=== PATIENT | female | born 1940 | race Caucasian/White ===

== ENCOUNTER → 2016-12-13 | Outpatient (CLI) | payer OTHER ==
[~2016-12-13] MED LIST: AMILORIDE HCL-1 EACH PO; ASPIRIN81 M2 PO; CENTRUM SILVER1 EAC4 PO; HYDROCODONE-AP1 EAC6 PO; LEVOTHYROXINE 0.1 MG PO; LOPRESSOR50 PO; NORVASC10 MG PO; PRINIVIL20 MG PO; ZOCOR40 MG PO
== END ==
LOC: RAD 09:21
DX: J98.11 Atelectasis (principal); R07.9 Chest pain, unspecified

== ENCOUNTER → 2016-12-19 | Outpatient (CLI) | payer OTHER | LOC: NUC 03:36 | DX: R07.89 Other chest pain (principal) ==

== ENCOUNTER → 2016-12-25 | Outpatient (CLI) | payer OTHER | LOC: MRI 02:12 | DX: M51.25 Other intervertebral disc displacement, thoracolumbar region (principal) ==

== ENCOUNTER → 2017-03-15 | Outpatient (CLI) | payer OTHER | LOC: CAT 07:54 | DX: K42.9 Umbilical hernia without obstruction or gangrene (principal); K44.9 Diaphragmatic hernia without obstruction or gangrene; I51.7 Cardiomegaly; K59.00 Constipation, unspecified ==

== ENCOUNTER → 2017-05-28 | Outpatient (CLI) | payer OTHER | LOC: RAD 04:07 | DX: Z12.31 Encounter for screening mammogram for malignant neoplasm of breast (principal) ==

== ENCOUNTER 2018-02-20 06:55 | Day surgery (SDC) | payer OTHER ==
[~2018-02-20] VITALS: Ht 167.6 cm; Wt 77.1 kg
--- NOTE | ~2018-02-20 | O ---
[facility] [place] [address] OPERATIVE REPORT Name: RISHI MIRZA Room #: DEP [facility]#: [id number] Admission: 02/20/18 Attend Phys: Ed Perez MD Discharge: 02/20/18 Date of : 38 Report #: [id number] THIS REPORT FOR: //name// CC: Feliberto Perez DATE OF SERVICE: 02/20/2018 SURGEON: Ed Perez MD [employer]AV[employer] MECHANIC: None. PREOPERATIVE DIAGNOSIS: Bilateral lower lid ectropion. POSTOPERATIVE DIAGNOSIS: Bilateral lower lid ectropion. OPERATION PERFORMED: Bilateral lower lid ectropion repair. ANESTHESIA: Local with IV sedation. COMPLICATIONS: None. INDICATIONS FOR PROCEDURE: This patient has bilateral acquired lower lid ectropion with chronic tearing and discharge. The current procedures are undertaken in order to improve the patient's visual function, lacrimal outflow, and level of comfort. Informed consent was obtained to include but not limit to the risk of loss of vision, bleeding, infection, scarring, failure to improve the problem and need for further surgery. DESCRIPTION OF OPERATION: The patient was taken to the operating room where 2% Xylocaine with epinephrine mixed with equal parts of 0.75% Marcaine with Wydase was administered transcutaneously and transconjunctivally to each lower lid and lateral canthal area. The patient was then prepped and draped in the usual sterile fashion. A Charles clamp was then used to clamp the left lateral canthus following which a sharp canthotomy and cantholysis were performed. The tarsal strip was prepared laterally, removing the lash bearing portion of the redundant lid margin and the redundant tarsal plate. Hemostasis was achieved with a monopolar cautery, as it was throughout the case. The tarsal strip was then secured to the internal portion of the lateral orbital tubercle with two interrupted 5-0 Prolene sutures. The lateral canthal angle was sharply reformed as the subcutaneous structures and the skin were closed with multiple interrupted 6-0 plain gut sutures. [facility] [address] [place] [address] OPERATIVE REPORT Name: RISHI MIRZA Room #: DEP [facility]#: [id number] Admission: 02/20/18 Attend Phys: Ed Perez MD Discharge: 02/20/18 Date of : 38 Report #: [id number] Attention was then turned to the right side where the same procedure was performed. The wounds were cleaned and dressed with ophthalmic antibiotic ointment. The patient was then transported to the recovery area, having tolerated the procedure well with no anesthetic or operative complications being noted. <ELECTRONICALLY SIGNED> By: Ed Perez MD 02/24/18 0618 [id number] Ed Perez MD /nt
[~2018-02-20 06:55] MED LIST changes: +COREG25 MG PO; +COZAAR 50 MG TA50 M2 PO; +CRESTOR40 MG PO; +HYDRALAZINE HC100 MG PO; +KLOR-CON M2020 MEQ PO; +LEVOTHYROXINE125 MCG PO; +PLAVIX 75 MG TA75 M1 PO; +VITAMIN D1000 UNI2 PO
[2018-02-20 09:54] VITALS: BP 145/56
== END 2018-02-20 12:00 | disposition home or self-care (01) ==
LOC: OR 06:55 → TBA 06:55 → OR 07:29
DX: H02.105 Unspecified ectropion of left lower eyelid (principal); H02.102 Unspecified ectropion of right lower eyelid; I10 Essential (primary) hypertension; E78.5 Hyperlipidemia, unspecified; Z90.710 Acquired absence of both cervix and uterus; Z98.890 Other specified postprocedural states; Z98.41 Cataract extraction status, right eye; Z98.42 Cataract extraction status, left eye; Z85.3 Personal history of malignant neoplasm of breast; Z79.899 Other long term (current) drug therapy; Z88.2 Allergy status to sulfonamides; Z79.82 Long term (current) use of aspirin
CPT/HCPCS: 50010; 50101; 50386; 50398; 51636; 56527; 56531; 62110; 62850; 70005

== ENCOUNTER → 2018-06-03 | Outpatient (CLI) | payer OTHER | LOC: RAD 06-02 13:29 | DX: Z12.31 Encounter for screening mammogram for malignant neoplasm of breast (principal) ==

== ENCOUNTER → 2019-06-04 | Outpatient (CLI) | payer OTHER | LOC: RAD 01:32 | DX: Z12.31 Encounter for screening mammogram for malignant neoplasm of breast (principal) ==

== ENCOUNTER → 2020-05-20 | Outpatient (CLI) | payer OTHER ==
[~2020-05-20] VITALS: Ht 167.6 cm; Wt 76.7 kg
[~2020-05-20] MED LIST changes: +TIZANIDINE HCL2 M1 PO
--- NOTE | ~2020-05-20 | HPC ---
[facility] [address] [place] [address] PAIN MANAGEMENT CONSULTATION Name: RISHI MIRZA Room #: REG MARICEL Burkett.#: [id number] Admission: 05/20/20 Attend Phys: Lana Loza MD Discharge: Date of : 38 Report #: [id number] CC: Mojgan Loza DATE OF SERVICE: 05/20/2020 CHIEF COMPLAINT: Right pain in the buttocks, hip and goes down into my leg. HISTORY: The patient is an 79-year-old female who has been referred to the pain clinic for evaluation. The patient has been having pain and discomfort in her right hip, buttocks and pain that radiates down to her leg. Notes that the pain is worse in the morning. Notes that some days are more problematic than the other. The pain has been problematic since 08/2019. Describes it as sharp, shooting, burning, cramping. It can vary in intensity between 2-8. Notes that the pain is exacerbated with carrying heavy objects upstairs in November. Has noted some improvement with use of ice. Sitting helps with the pain and discomfort. The patient denies any injuries. Has used a brace on her right leg. PAST MEDICAL HISTORY: Hypertension, thyroid disease, kidney disease, cancer. ALLERGIES: SULFA, ERYTHROMYCIN. CURRENT MEDICATIONS: Tizanidine 2 mg b.i.d., vitamin D3 1000 units, potassium 20 mEq, Plavix 75 mg, stopped prior to this injection. Coreg 25 mg, losartan 50 mg, Crestor 40 mg, levothyroxine 125 mcg, amiloride/hydrochlorothiazide 0.5 tab, multivitamins, Centrum Silver, aspirin 81 mg, amlodipine 10 mg. PAST SURGICAL HISTORY: Tonsillectomy in 1940, hysterectomy in 1985 for endometriosis, thyroidectomy, overactive thyroid in 1966, lumpectomy in 2005, broken upper left arm in 2017, no surgery. In 2018, kidney failure, discovered second kidney problem, renal stent. SOCIAL HISTORY: She is a retired biomedical engineering internship, has not worked in the last 9 years. REVIEW OF SYSTEMS: Generally good health, fatigue, weakness, glaucoma/cataracts. LABORATORY DATA: MRI dated 05/12/2020, L2-L3 retrolisthesis and bulging of disk material are presented, resulting in mild central spinal stenosis. Additionally, bulging disk material is asymmetric to the right and there is moderate right and mild left neural foraminal narrowing. Thecal sac 0.9 cm AP. L3-L4, mild disk bulging and ligamentum flavum thickening were present contributing to mild degenerative central spinal stenosis with neural foraminal narrowing. Thecal sac 0.9 cm AP. L4-L5, there is uncovering and bulging of disk material asymmetric to the right, ligamentum flavum thickening and moderate facet arthropathy. Combination of degenerative findings result in moderate right and mild left neural foraminal severe central spinal stenosis. Thecal sac 0.5 cm AP. L5-S1, there is degenerative disk disease with bulging disk material and superimposed right posterior paracentral disk extrusion, which encroaches upon the right lateral recess and traversing the S1 nerve could result in radicular symptoms. Mild disk material is asymmetric to the left and degenerative findings result in moderate left neural foraminal narrowing and mild central spinal stenosis. Of note there are interspinous degenerative changes as well as cyst formation. Thecal sac 0.9 cm AP. PAIN CLINIC ASSESSMENT AND PQRS: 1. History of osteoarthritis. The patient is not being treated for osteoarthritis. 2. Rheumatoid arthritis. The patient is not being treated for rheumatoid arthritis. 3. Height 5 feet 6 inches, weight 169 pounds, BMI is 27. 4. Vital Signs: Blood pressure 184/92, pulse 86, respiratory rate 16, room air saturation 97%. 5. Pain intensity 2-8/10. 6. Fall risk. The patient has not fallen. 7. Blood thinner, Plavix. The patient is taking Plavix today. 8. History of hypertension. The patient is being treated for hypertension. 9. Opioid therapy. The patient is not receiving opioid medications. 10. Risk assessment tool, low for opioid use. 11. Functional assessment tool . 12. Recreational drug use. The patient denies. 13. Tobacco: The patient has never smoked. 14. Alcohol: The patient occasionally drinks one alcoholic beverage weekly. PHYSICAL EXAMINATION: GENERAL: The patient is a well-developed, well-nourished white female. Appears her stated age. She is alert and oriented x 3. Her affect is appropriate. Speech is fluent. HEENT: Normocephalic, atraumatic. Extraocular eye muscles intact. Sclerae nonicteric. Mucous membranes are moist. The patient is wearing a facial covering. The patient is suffering from macular degeneration. HEART: Regular rate. LUNGS: Clear. ABDOMEN: Nontender. EXTREMITIES: Upper extremity muscle strength judged to be 5-/5 for the major muscle groups in the upper extremity. Lower extremity muscle strength judged to be 5-/5 for the major muscle groups in the lower extremity. The patient has pain and discomfort in the right buttocks area with pain that is radiating down into the right leg. IMPRESSION: Spinal stenosis with pain radiating down into the L5 and into the lumbar area. RECOMMENDATIONS: We discussed treatment options with the patient. At this juncture, the patient has continued to take Plavix. She will return to the Pain Clinic in 7 days after stopping this Plavix. She will then undergo an epidural steroid injection because of pain and discomfort in the L5-S1 dermatomal distribution, which she is experiencing. We would like to thank you for letting us participate in her care. We hope she continues to improve. By: [id number] Lana Loza MD /MADI
[2020-05-20 12:38] VITALS: BP 184/92
--- NOTE | 2020-05-20 12:50 | NUR ---
Pain Clinic Assessment: 1. History of Osteoarthritis: Not Applicable History of Rheumatoid Arthritis: Not Applicable 2. Height: 5 ft. 6 in. 167.6 cm. Weight: 169.2 lb. oz. 76.749 kg. Patient's BMI: 27.3 3. Vital Signs: BP: 184/92 Pulse: 86 Resp: 16 Temp: 02 Sat: 97 ECG Mon: 4. Pain Intensity: 2-8 5. Fall Risk: Dizziness: N Needs help standing or walking: N Fallen in the last 3 months: N Fall risk comments: 6. Patient on Blood Thinner: Clopidogrel Bisulf(Plavix 7. History of Hypertension: Y 8. Opioid Therapy greater than 6 weeks: N Opiate Contract Signed: 9. Risk Assessment Tool Provided: 0-LOW RISK 10. Functional Assessment Tool: / 11. Recreational Drug Use: Never Drug Type: Tobacco Use: Never Smoker Tobacco Type: Amount or Packs/day: How Many Years: Alcohol Use: Yes Frequency: Weekly Quant: 1 DRINK
== END ==
LOC: PAIN 06:59
PROVIDERS: ATTEND Anesthesiology Pain Medicine
DX: M48.061 Spinal stenosis, lumbar region without neurogenic claudication (principal); M25.551 Pain in right hip; Z79.899 Other long term (current) drug therapy

== ENCOUNTER → 2020-05-25 | Outpatient (CLI) | payer OTHER ==
[~2020-05-25] VITALS: Ht 167.6 cm; Wt 72.3 kg
[2020-05-25 13:21] VITALS: BP 152/71
--- NOTE | 2020-05-25 13:26 | NUR ---
Pain Clinic Assessment: 1. History of Osteoarthritis: Not Applicable History of Rheumatoid Arthritis: Not Applicable 2. Height: 5 ft. 6 in. 167.6 cm. Weight: 159.4 lb. oz. 72.303 kg. Patient's BMI: 25.7 3. Vital Signs: BP: 152/71 Pulse: 77 Resp: 16 Temp: 02 Sat: 98 ECG Mon: 4. Pain Intensity: 4 5. Fall Risk: Dizziness: N Needs help standing or walking: Y Fallen in the last 3 months: N Fall risk comments: 6. Patient on Blood Thinner: Clopidogrel Bisulf(Plavix 7. History of Hypertension: Y 8. Opioid Therapy greater than 6 weeks: N Opiate Contract Signed: 9. Risk Assessment Tool Provided: 0-LOW RISK 10. Functional Assessment Tool: 11. Recreational Drug Use: Never Drug Type: Tobacco Use: Never Smoker Tobacco Type: Amount or Packs/day: How Many Years: Alcohol Use: Yes Frequency: Quant:
== END | disposition home or self-care (01) ==
LOC: PAIN 06:42
PROVIDERS: ATTEND Anesthesiology Pain Medicine
DX: M54.16 Radiculopathy, lumbar region (principal); G89.29 Other chronic pain; Z98.890 Other specified postprocedural states; Z79.899 Other long term (current) drug therapy; Z88.2 Allergy status to sulfonamides; Z88.8 Allergy status to other drugs, medicaments and biological substances

== ENCOUNTER → 2020-06-09 | Outpatient (CLI) | payer OTHER | LOC: RAD 10:44 | PROVIDERS: ATTEND Internal Medicine | DX: Z12.31 Encounter for screening mammogram for malignant neoplasm of breast (principal); N64.89 Other specified disorders of breast ==

== ENCOUNTER → 2020-08-31 | Outpatient (CLI) | payer OTHER ==
[~2020-08-31] VITALS: Ht 167.6 cm; Wt 77.4 kg
[2020-08-31 14:13] VITALS: BP 145/79
--- NOTE | 2020-08-31 14:32 | NUR ---
Pain Clinic Assessment: 1. History of Osteoarthritis: Not Applicable History of Rheumatoid Arthritis: Not Applicable 2. Height: 5 ft. 6 in. 167.6 cm. Weight: 170.6 lb. oz. 77.384 kg. Patient's BMI: 27.5 3. Vital Signs: BP: 145/79 Pulse: 82 Resp: 16 Temp: 02 Sat: 97 ECG Mon: 4. Pain Intensity: 7 5. Fall Risk: Dizziness: N Needs help standing or walking: Y Fallen in the last 3 months: N Fall risk comments: 6. Patient on Blood Thinner: Clopidogrel Bisulf(Plavix 7. History of Hypertension: Y 8. Opioid Therapy greater than 6 weeks: N Opiate Contract Signed: 9. Risk Assessment Tool Provided: 0-LOW RISK 10. Functional Assessment Tool: 11. Recreational Drug Use: Never Drug Type: Tobacco Use: Never Smoker Tobacco Type: Amount or Packs/day: How Many Years: Alcohol Use: Yes Frequency: Weekly Quant: 1 GLASS
== END | disposition home or self-care (01) ==
LOC: PAIN 06:58
PROVIDERS: ATTEND Anesthesiology Pain Medicine
DX: M54.16 Radiculopathy, lumbar region (principal); M48.061 Spinal stenosis, lumbar region without neurogenic claudication; I10 Essential (primary) hypertension; E07.9 Disorder of thyroid, unspecified; H40.9 Unspecified glaucoma; Z98.890 Other specified postprocedural states; Z79.899 Other long term (current) drug therapy; Z88.2 Allergy status to sulfonamides; Z79.01 Long term (current) use of anticoagulants

== ENCOUNTER → 2021-06-12 | Outpatient (CLI) | payer OTHER | LOC: BC 09:56 | PROVIDERS: ATTEND Internal Medicine | DX: Z12.31 Encounter for screening mammogram for malignant neoplasm of breast (principal); N64.89 Other specified disorders of breast ==

== ENCOUNTER → 2021-08-15 | Outpatient (CLI) | payer OTHER | LOC: NUC 10:08 | PROVIDERS: ATTEND Internal Medicine | DX: M81.0 Age-related osteoporosis without current pathological fracture (principal); M85.88 Other specified disorders of bone density and structure, other site ==